=== PATIENT | female | born 1950 | race Caucasian/White ===

== ENCOUNTER → 2019-10-11 | Outpatient (CLI) | payer MEDICARE, OTHER ==
--- NOTE | 2019-10-11 15:24 | CARD ---
MR#: [id number] Date of Study: 10/11/2019 Ordering Physician: LYNETTE DEL RIO, Referring Physician: LYNETTE DEL RIO, Tech: Nicole Cabrera APPROVED REPORT EXAM: Two-dimensional and M-mode echocardiogram with Doppler and color Doppler. Other Information Quality : AverageHR: 85bpm INDICATION Congestive Heart Failure RISK FACTORS Hypertension Hyperlipidemia 2D DIMENSIONS RVDd3.1 (2.9-3.5cm)Left Atrium(2D)3.0 (1.6-4.0cm) IVSd1.3 (0.7-1.1cm)Aortic Root(2D)3.1 (2.0-3.7cm) LVDd4.7 (3.9-5.9cm)LVOT Diameter2.2 (1.8-2.4cm) PWd1.1 (0.7-1.1cm)LVDs2.8 (2.5-4.0cm) FS (%) 39.9 %SV71.9 ml LVEF(%)70.5 (>50%) Aortic Valve AoV Peak Maciel.160.3cm/sAoV VTI29.4cm AO Peak GR.10.3mmHgLVOT Peak Maciel.105.0cm/s LVOT VTI 22.66cmAO Mean GR.4mmHg MAXIMO (VMAX)2.01cq5SRG (VTI)2.89cm2 Mitral Valve MV E Brtalfvo29.9cm/sMV DECEL [id number] MV A Tufreegm70.2cm/sE/A Ratio1.1 Pulmonary Valve PV Peak Tyiovtrs55.9cm/sPV Peak Grad.4mmHg Tricuspid Valve TR P. Hgzmtvjt197lm/sRAP [id number] TR Peak Gr.22jdGbTDLM41rgXz Pulmonary Vein S1 Wwmlqmdd45.7cm/sD2 Gpjopqnq32.4cm/s LEFT VENTRICLE The left ventricle is normal size. There is mild concentric left ventricular hypertrophy. The left ve ntricular systolic function is normal and the ejection fraction is within normal range. The Ejection Fraction is 60-65%. There is normal LV segmental wall motion. Transmitral Doppler flow pattern is Gra de II-pseudonormal filling dynamics. RIGHT VENTRICLE The right ventricle is normal size. There is normal right ventricular wall thickness. The right ventr icular systolic function is normal. ATRIA The left atrium size is normal. The right atrium size is normal. The interatrial septum is intact wit h no evidence for an atrial septal defect or patent foramen ovale as noted on 2-D or Doppler imaging. AORTIC VALVE The aortic valve is normal in structure and function. Doppler and Color Flow revealed no significant aortic regurgitation. There is no significant aortic valvular stenosis. Calculated aortic valve area is 2.9 cm2 with maximum pressure gradient of 11 mmHg and mean pressure gradient of 5 mmHg. MITRAL VALVE The mitral valve is normal in structure and function. There is no evidence of mitral valve prolapse. There is no mitral valve stenosis. Doppler and Color-flow revealed trace mitral regurgitation. TRICUSPID VALVE The tricuspid valve is normal in structure and function. Doppler and Color Flow revealed mild tricusp id regurgitation with an estimated PAP of 35 mmHg. There is no tricuspid valve stenosis. PULMONIC VALVE The pulmonic valve is not well visualized. Doppler and Color Flow revealed no pulmonic valvular regur gitation. There is no pulmonic valvular stenosis. GREAT VESSELS The aortic root is normal in size. The IVC is normal in size and collapses >50% with inspiration. PERICARDIAL EFFUSION There is no evidence of significant pericardial effusion. Critical Notification Critical Value: No <Conclusion> The left ventricular systolic function is normal and the ejection fraction is within normal range. Th e Ejection Fraction is 60-65%. There is normal LV segmental wall motion. Signed by : Jovan Reynolds, Electronically Approved : 10/11/2019 15:24:15
== END | disposition home or self-care (01) ==
LOC: ECHO 13:52
PROVIDERS: ATTEND Specialist
DX: I08.8 Other rheumatic multiple valve diseases (principal); I11.0 Hypertensive heart disease with heart failure; I50.32 Chronic diastolic (congestive) heart failure
CPT/HCPCS: 93306

== ENCOUNTER 2019-11-25 13:52 | Emergency (ER) | payer MEDICARE, OTHER ==
[~2019-11-25] VITALS: Ht 167.6 cm; Wt 77.0 kg
[2019-11-25] MEDS ORDERED: ONDANSETRON PF 4 MG/2 ML VIAL. ONE (14:30)
[2019-11-25] MEDS ORDERED: IV NORMAL SALINE 1,000ML 1,000 ML IV ONE (14:45)
[2019-11-25] MEDS ORDERED: ONDANSETRON PF 4 MG/2 ML VIAL. IVP ONE ×2 (14:45→15:30)
[2019-11-25] MEDS ORDERED: IV NORMAL SALINE 1,000ML 1,000 ML IV SCH (14:46)
--- NOTE | 2019-11-25 14:46 | PHYS DOC ---
Past History Past Medical History: Hypertension Adult General HPI HPI Patient is a 69-year-old female who presents for rectal bleeding. Onset was several hours prior to arrival, reports using toilet when she reportedly " felt my bowels come out". She reports constant bright red blood evacuating from her bowels ever since onset. Reports significant pain. Denies anything like this ever happening in the past. Reports history of colonoscopy performed within last 12 months, no intervention or abnormalities were reportedly found. Denies any recent febrile illness, no COVID-19 contacts Review of Systems Review of Systems Fourteen body systems of review of systems have been reviewed. See HPI for pertinent positives and negative responses, other perdomo all other systems are neg ative, non-pertinent or non-contributory Current Medications Current Medications Current Medications Medications (Trade) Dose Ordered Sig/Katia Start Time Stop Time Status Last Admin Dose Admin Ondansetron HCl (Zofran) 4 mg 1X ONCE 11/25/19 14:45 11/25/19 14:46 UNV Sodium Chloride 1,000 ml @ 1,000 mls/hr 1X ONCE 11/25/19 14:45 11/25/19 15:44 UNV Physical Exam Physical Exam Constitutional: Well developed, well nourished, moderate distress, non-toxic appearance. HENT: Normocephalic, atraumatic, bilateral external ears normal, oropharynx dry, no oral exudates, nose normal. Eyes: PERRLA, EOMI, conjunctiva normal, no discharge. Neck: Normal range of motion, no tenderness, supple, no stridor. Cardiovascular: Heart rate regular, sinus rhythm, no murmurs rubs or gallops Lungs & Thorax: Bilateral breath sounds clear to auscultation Abdomen: Bowel sounds normal, soft, no tenderness, no masses, no pulsatile masses. Nonsurgical abdomen, no peritoneal signs. Rectal exam significant for large protruding red/palacio colored mass, bright red blood intermittently present leaking from anus, unable to fully visual anal sphincter, attempts made to reduce said mass that were unsuccessful Skin: Warm, dry, no erythema, no rash. Back: No tenderness, no CVA tenderness. Extremities: No tenderness, no cyanosis, no clubbing, ROM intact, no edema. Neurologic: Alert and oriented X 3, grossly normal motor & sensory function, no focal deficits noted. Psychologic: Anxious, judgment normal, mood normal given situation Current Patient Data Vital Signs Vital Signs Date Time Temp Pulse Resp B/P (MAP) Pulse Ox O2 Delivery O2 Flow Rate FiO2 11/25/19 15:31 18 99 Lab Results Laboratory Tests Test 11/25/19 14:38 11/25/19 15:18 White Blood Count 7.6 x10^3/uL Red Blood Count 4.05 x10^6/uL Hemoglobin 12.5 g/dL Hematocrit 37.9 % Mean Corpuscular Volume 94 fL Mean Corpuscular Hemoglobin 31 pg Mean Corpuscular Hemoglobin Concent 33 g/dL Red Cell Distribution Width 13.8 % Platelet Count 314 x10^3/uL Neutrophils (%) (Auto) 63 % Lymphocytes (%) (Auto) 19 % Monocytes (%) (Auto) 6 % Eosinophils (%) (Auto) 11 % Basophils (%) (Auto) 1 % Neutrophils # (Auto) 4.8 x10^3uL Lymphocytes # (Auto) 1.5 x10^3/uL Monocytes # (Auto) 0.4 x10^3/uL Eosinophils # (Auto) 0.8 x10^3/uL Basophils # (Auto) 0.1 x10^3/uL Prothrombin Time 10.0 SEC Prothromb Time International Ratio 1.0 Activated Partial Thromboplast Time 22 SEC Lactic Acid Level 1.9 mmol/L Current Medications Medications (Trade) Dose Ordered Sig/Katia Route PRN Reason Start Time Stop Time Status Last Admin Dose Admin Ondansetron HCl (Zofran) 4 mg STK-MED ONCE .ROUTE 11/25/19 14:30 11/25/19 14:31 DC Sodium Chloride 1,000 ml @ 1,000 mls/hr 1X ONCE IV 11/25/19 14:45 11/25/19 15:44 DC 11/25/19 15:28 Ondansetron HCl (Zofran) 4 mg 1X ONCE IVP 11/25/19 14:45 11/25/19 14:57 DC 11/25/19 15:29 Sodium Chloride 1,000 ml @ 1,000 mls/hr Q1H IV 11/25/19 14:46 11/25/19 15:45 DC Fentanyl Citrate (Fentanyl 2ml Vial) 50 mcg 1X ONCE IVP 11/25/19 15:00 11/25/19 15:01 DC 11/25/19 15:31 Fentanyl Citrate (Fentanyl 2ml Vial) 100 mcg STK-MED ONCE .ROUTE 11/25/19 14:57 11/25/19 14:57 DC Ondansetron HCl (Zofran) 4 mg 1X ONCE IVP 11/25/19 15:30 11/25/19 15:31 DC Fentanyl Citrate (Fentanyl 2ml Vial) 50 mcg 1X ONCE IVP 11/25/19 15:30 11/25/19 15:31 DC EKG EKG [] Radiology/Procedures Radiology/Procedures [] Course & Med Decision Making Course & Med Decision Making Patient immediately seen on ER arrival after reports she was having bloody discharge in ER lobby chairs Airway patent, mild respiratory distress with no other abnormalities, IV access obtained and vitals obtained that were remarkable for hypertension only Comprehensive history and physical exam obtained, immediate concern for rectal prolapse on physical exam IV 1 L normal saline administered, total of 8 mg IV Zofran administered for nausea, 100 mcg fentanyl administered for pain Patient case discussed with [facility] hospitalist, Dr. Marvin, who agreed for need of admission and surgical consultation. On-call [facility] surgeon, Dr. Cowan, called and case discussed. He recommended rectal surgery consultation Patient case was ultimately discussed with [facility] triage center, I got in contact with Dr. Dubois, the rectal surgeon who agreed for need for surgical evaluation and further medical management Patient stabilized while under my care in the ER, nausea and pain improved since arrival, rectal mass covered in sugar and towels per rectal surgeon recommendation and patient transferred via EMS to [facility] Case discussed with patient and , both were agreeable regarding need for hospital transfer and subsequent admission. All questions and concerns addressed prior to ER departure Dragon Disclaimer Dragon Disclaimer This electronic medical record was generated, in whole or in part, using a voice recognition dictation system. Departure Departure: Impression: Primary Impression: Rectal bleeding Additional Impressions: Rectal prolapse Hypertension Disposition: 02 XFER SHT-TRM HOSP ([facility] under care of Dr. Dubois) Admitting Physician: Other (Dr. Dubois) Condition: STABLE Referrals: LYNETTE DEL RIO MD (PCP) Justification of Admission: Justification of Admission: Justification of Admission Dx: Yes (rectal prolapse with concern for strangulation) Problem Qualifiers YAYA PASCUAL DO Nov 25, 2019 14:46
[2019-11-25 15:12] LABS: BASO # 0.1 x10^3/uL (0.0-0.2); BASO % 1 % (0-3); EOS # 0.8 x10^3/uL (0.0-0.7); EOS % 11 % (0-3); HEMATOCRIT 37.9 % (36.0-47.0); HEMOGLOBIN 12.5 g/dL (12.0-15.5); LYMPH # 1.5 x10^3/uL (1.0-4.8); LYMPH % 19 % (24-48); MEAN CORPUSCULAR HEMOGLOBIN 31 pg (25-35); MEAN CORPUSCULAR HGB CONC 33 g/dL (31-37); MEAN CORPUSCULAR VOLUME 94 fL (79-100); MONO # 0.4 x10^3/uL (0.0-1.1); MONO % 6 % (0-9); NEUT # 4.8 x10^3uL (1.8-7.7); NEUT % 63 % (31-73); PLATELET COUNT 314 x10^3/uL (140-400); RED BLOOD COUNT 4.05 x10^6/uL (3.50-5.40); RED CELL DISTRIBUTION WIDTH 13.8 % (11.5-14.5); WHITE BLOOD COUNT 7.6 x10^3/uL (4.0-11.0)
[2019-11-25 16:00] VITALS: BP 187/107
[2019-11-25] MEDS ORDERED: METOCLOPRAMIDE HCL 10 MG/2 ML VIAL. IVP ONE (17:30)
[2019-11-25 17:51] LABS: CALCIUM 9.3 mg/dL (8.5-10.1); GFR 55.1; POTASSIUM 3.7 mmol/L (3.5-5.1)
== END 2019-11-25 17:46 | disposition short-term general hospital (02) ==
LOC: ER 13:52
DX: K62.3 Rectal prolapse (principal); I10 Essential (primary) hypertension
CPT/HCPCS: 36415; 80048; 83605; 85025; 85610; 85730; 87040; 96361; 96374; 96375; 96376; 99285; J2405; J2765; J3010; J7030